=== PATIENT | male | born 1950 | race Caucasian/White ===

== ENCOUNTER 2024-06-13 12:15 | Outpatient (CLI) | payer MEDICARE, OTHER ==
[~2024-06-13 12:15] MED LIST: Magnevist 469MG/ML 20 ML VIAL ONE
== END 2024-06-13 12:16 | disposition home or self-care (01) ==
LOC: CSHMRI 12:15
PROVIDERS: ATTEND Urology
DX: R97.20 Elevated prostate specific antigen [PSA] (principal)
CPT/HCPCS: 36415; 72197; 82565